=== PATIENT | male | born 1970 | race Caucasian/White ===

== ENCOUNTER 2020-10-24 07:20 | Emergency (ER) | payer SELFPAY ==
[~2020-10-24] VITALS: Ht 185.4 cm; Wt 100.0 kg
[2020-10-24 09:22] VITALS: BP 134/77
== END 2020-10-24 09:20 | disposition home or self-care (01) ==
LOC: ER 07:20
DX: U07.1 COVID-19 (principal); I10 Essential (primary) hypertension
CPT/HCPCS: 99283; C9803; U0003; U0005